=== PATIENT | female | born 1960 | race Hispanic/Latino ===

== ENCOUNTER 2024-07-28 20:48 | Inpatient (IN) | payer SELFPAY ==
[~2024-07-28] VITALS: Ht 154.9 cm; Wt 116.4 kg
[~2024-07-28 20:48] MED LIST: ALDACTONE25 MG PO; AMLODIPINE BESYL5 MG PO; ATORVASTATIN CA40 MG PO; AVAPRO300 MG PO; CARVEDILOL6.25 MG PO; D3400 UNIT PO; ISOSORB MONO30 MG PO; LASIX 40 MG TAB40 MG PO; OZEMPIC 8 MG/3M1 INJ SC; PROTONIX40 M2 PO; VENTOLIN HFA108 MCG IH; ZOLOFT50 MG PO
--- NOTE | 2024-07-28 21:00 | NUR ---
PATIENT TO ROOM, EKG OBTAINED, IV ESTABLISHED, LABS DRAWN AND PATIENT PLACED ON 2L VIA NC. PATIENT SATURATING AT 65% PLACED ON 3 L NC, PATIENT SATURATING 91%/ BAILIFF CALLED TO BEDSIDE.
[2024-07-28] MEDS ORDERED: ASPIRIN 81 MG/TAB PO ONE (21:20)
[2024-07-28] MEDS ORDERED: ACETAMINOPHEN 500 MG TAB PO ONE (21:25)
[2024-07-28 21:27] LABS: BASO% 0.4 % (0-3); EOS% 3.2 % (0-8); HEMATOCRIT 38.5 % (37.0-47.0); HEMOGLOBIN 11.4 g/dl (12.0-16.0); IMMATURE GRANULOCYTES 0.5 % (0.0-5.0); LYMPH% 15.5 % (15-41); MEAN CELL VOLUME 88.3 fL CALC (80.0-100.0); MEAN CORPUSCULAR HGB 26.1 pG CALC (26.0-32.0); MEAN CORPUSCULAR HGB CONC 29.6 g/dL CAL (32.0-36.0); MONO% 7.2 % (2-13); NEUT# 8.16 thou/uL (2.00-7.15); NEUT% 73.2 % (42-76); RED BLOOD COUNT 4.36 mill/uL (4.20-5.60); RED CELL DISTRI WIDTH 14.9 % (11.5-15.5)
[2024-07-28 21:40] LABS: ALBUMIN 4.2 g/dL (3.2-5.0); BILIRUBIN, TOTAL 0.6 mg/dL (0.02-1.3); CREATININE 1.1 mg/dL (0.5-1.0); POTASSIUM 3.9 mmol/l (3.5-5.1); TOTAL PROTEIN 7.7 g/dL (6.3-8.2)
[2024-07-28 21:45] LABS: D-DIMER 0.86 mg/L (0.19-0.60)
[2024-07-28 21:48] LABS: ACT PARTIAL THROMBO TIME 25.8 SECONDS (20.0-32.5); INTERNATIONAL NORMALIZED RATIO 0.9 RATIO (0.7-1.3)
[2024-07-28 21:49] LABS: PROTHROMBIN TIME 10.1 SECONDS (9.0-12.5)
[2024-07-28] MEDS ORDERED: Iopamidol 370 (Isovue) 76% 100 ML SDV IV ONE (21:50)
[2024-07-28 22:04] VITALS: BP 204/98
--- NOTE | 2024-07-28 22:34 | NUR ---
ASSISTED PT TO ROOM FROM BATHROOM AT THIS TIME VIA W/C. PT URINE SAMPLE COLLECTED.
[2024-07-28 22:39] LABS: URINE BILIRUBIN - DIPSTICK Negative (NEGATIVE); URINE BLOOD DIPSTICK Trace-intact (NEGATIVE); URINE GLUCOSE - DIPSTICK Negative (NEGATIVE); URINE KETONE Negative (NEGATIVE); URINE LEUK ESTERASE Negative (NEGATIVE); URINE NITRITE - DIPSTICK Negative (Negative); URINE PROTEIN - DIPSTICK 100 mg/dL (NEG-TRACE)
[2024-07-28 22:40] LABS: URINE COLOR Yellow
[2024-07-28 22:45] LABS: URINE SQUAMOUS EPITHELIAL CELL MANY EPI/hpf (0-FEW); URINE WBC 0-2 WBC/hpf (0-5)
[2024-07-28 22:47] VITALS: BP 194/90
--- NOTE | 2024-07-28 23:08 | NUR ---
MD AT BEDSIDE REVIEWING RESULTS WITH PT
[2024-07-28] MEDS ORDERED: cefTRIAXone SODIUM 2 GM in SODIUM CHLORIDE 0.9% 100 ML IV ONE (23:10)
[2024-07-28] MEDS ORDERED: AZITHROMYCIN 500 MG in SODIUM CHLORIDE 0.9% 250 ML IV ONE (23:10)
[2024-07-28] MEDS ORDERED: FUROSEMIDE 40 MG/4 ML SDV IV ONE (23:10)
[2024-07-28] MEDS ORDERED: ONDANSETRON HCl 4 MG/2 ML SDV IV PRN (23:15)
[2024-07-28] MEDS ORDERED: IBUPROFEN 800 MG/TAB PO PRN (23:15)
[2024-07-28] MEDS ORDERED: Polyethylene Glycol 3350 17 GM/PKT PO PRN (23:15)
[2024-07-28] MEDS ORDERED: ALUM & MAG HYDROX-SIMETHICONE 30 ML PO PRN (23:15)
[2024-07-28] MEDS ORDERED: ENOXAPARIN SODIUM 40 MG/0.4 ML SYR SC SCH (23:15)
[2024-07-28] MEDS ORDERED: FAMOTIDINE 10MG/ML 2ML SDV IV PRN (23:15)
[2024-07-28] MEDS ORDERED: ONDANSETRON 4 MG/TAB ODT PO PRN (23:15)
[2024-07-28] MEDS ORDERED: INSULIN LISPRO 100 UNITS/ML ML SC SCH (23:20)
[2024-07-28] MEDS ORDERED: DEXTROSE 250 ML IV PRN (23:20)
[2024-07-28] MEDS ORDERED: GLUCOTROL EXTE2.5 M1 PO (23:30)
[2024-07-28] MEDS ORDERED: LABETALOL HCL 20 MG/ 4 ML CARTRG IV ONE (23:30)
[2024-07-28] MEDS ORDERED: cloNIDine HCL 0.1 MG/TAB PO ONE (23:30)
[2024-07-28 23:36] VITALS: BP 224/105
[2024-07-28 23:44] VITALS: BP 221/107
[2024-07-28 23:45] VITALS: BP 193/87
--- NOTE | 2024-07-28 23:54 | NUR ---
REPORT GIVEN TO IESHA RUIZ
[2024-07-29] VITALS (10 sets, daily range): BP systolic 109–184; BP diastolic 53–83
--- NOTE | 2024-07-29 00:20 | NUR ---
PATIENT BEING TRASNPORTED TO [facility].
--- NOTE | 2024-07-29 02:08 | NUR ---
PT RECEIVED FROM ER VIA WHEELCHAIR. REPORT RECEIVED FROM ER NURSE. ASSESSMENT COMPLETED AT THIS TIME. PT ALERT AND ORIENTED X3 DENIES ANY PAIN. RESPS ARE EVEN AND UNLABORED. O2 IN PLACE VIA NC AT 2L/MIN. LUNG SOUNDS LEAR IN UPPER LOBES-DIMINISHED ON LOBER LOBES. BOWEL SOUNDS ARE ACTIVE IN ALL QUADRANTS. STATED ALS BM WAS 06/27/24. ABD SOFT AND NONTENDER. EDEMA BILATERALLY ON FEET +1. 20 L A/C NOTED-FLUSHES WELL. TELE ON PLACE. BSC ON THE SIDE. ORIENTED TO ROOM AND SURROUNDINGS. INSTRUCTED TO CALL FOR ASSISTANCE. CALL LIGHT IN REACH AND SAFETY PRECAUTIONS IN PLACE.
[2024-07-29 04:41] LABS: BASO% 0.5 % (0-3); EOS% 3.1 % (0-8); HEMATOCRIT 33.8 % (37.0-47.0); HEMOGLOBIN 10.2 g/dl (12.0-16.0); IMMATURE GRANULOCYTES 0.3 % (0.0-5.0); MEAN CELL VOLUME 87.8 fL CALC (80.0-100.0); MEAN CORPUSCULAR HGB 26.5 pG CALC (26.0-32.0); MEAN CORPUSCULAR HGB CONC 30.2 g/dL CAL (32.0-36.0); MONO% 8.8 % (2-13); NEUT# 7.37 thou/uL (2.00-7.15); NEUT% 70.3 % (42-76); RED BLOOD COUNT 3.85 mill/uL (4.20-5.60); RED CELL DISTRI WIDTH 14.9 % (11.5-15.5)
[2024-07-29 04:45] LABS: CHOLESTEROL HDL RATIO 3.1 (<4.4 (CALC)); POTASSIUM 3.9 mmol/l (3.5-5.1)
--- NOTE | 2024-07-29 07:30 | NUR ---
SHIFT CHANGE REPORT, PT AITTING UP AT BEDSIDE, C/O SOB AND HEADACHE WHEN AMBULATING TO BR, O2 @ 2L VIA NC IN PLACE, TELE MONITOR IN PLACE, CALL VALENTIN IN REACH AND BED LOCKED IN LOWEST POSITION.
[2024-07-29] MEDS ORDERED: DEXTROSE 250 ML IV PRN (08:15)
[2024-07-29] MEDS ORDERED: ISOSORBIDE MONONITRATE 30 MG TAB PO SCH (09:00)
[2024-07-29] MEDS ORDERED: CARVEDILOL 6.25 MG/TAB PO SCH (09:00)
[2024-07-29] MEDS ORDERED: SERTRALINE HCL 50 MG/TAB PO SCH (09:00)
[2024-07-29] MEDS ORDERED: ASPIRIN 81 MG/TAB PO SCH ×2 (09:00)
--- NOTE | 2024-07-29 09:40 | NUR ---
COMMUNICATION VIA LANGUAGE LINE (REP IS YASMANY), PT REPORTS HEADACHE AND SOB DURING AMBULATION, REQUESTING PROTONIX STATING SHE TAKES 40 MG DAILY AT HOME AND ALSO ASKING FOR LAXATIVE/STOOL SOFTNER STATING SHE HAS NOT HAD A GOOOD BM IN DAYS EVEN THOUGH SHE WENT YESTERDAY, VACCINE SPECIALIST NOTIFIED AND SAID SHE WILL ADDRESS CONCERNS.
[2024-07-29] MEDS ORDERED: methylPREDNISolone Sod Succ 40 MG/ML SDV IV SCH (10:00)
[2024-07-29] MEDS ORDERED: INSULIN LISPRO 100 UNITS/ML ML SC SCH (11:00)
[2024-07-29] MEDS ORDERED: FUROSEMIDE 40 MG/4 ML SDV IV SCH (11:00)
[2024-07-29] MEDS ORDERED: ALBUTEROL SULFATE 2.5 MG VIAL NEB PRN (11:15)
[2024-07-29] MEDS ORDERED: ACETAMINOPHEN 325 MG/TAB PO PRN (11:20)
[2024-07-29] MEDS ORDERED: MAGNESIUM HYDROXIDE 30 ML UDC PO PRN (11:20)
[2024-07-29] MEDS ORDERED: hydrALAZINE HCL 20 MG/ML VIAL(1 ML) IV PRN (11:25)
[2024-07-29] MEDS ORDERED: SENNOSIDES-Docusate Sodium 1 COMBO TAB PO SCH (11:30)
[2024-07-29] MEDS ORDERED: PANTOPRAZOLE SODIUM Sesquihydr 40 MG/TAB PO SCH (11:45)
--- NOTE | 2024-07-29 12:00 | NUR ---
CONDITION STABLE AT THIS TIME, CONCERNS ADDRESSED, CALL VALENTIN IN REACH.
--- NOTE | 2024-07-29 14:00 | NUR ---
PT REPORTS SHE EXPERIENCES SOB AND HEADACHE WHENEVER SHE AMBULATES TO BR OR TRIES TO TAKE A SHOWER, MEDICAL STAFF INFORMED, PT ADVISED TO USE CALL VALENTIN TO CALL FOR ASSISTANCE NEEDED.
--- NOTE | 2024-07-29 16:52 | NUR ---
SITTING UP AT BEDSIDE AT THIS TIME HAVING MEAL.
--- NOTE | 2024-07-29 19:30 | NUR ---
PATIENT RESTING ON BED WITH HER SITTING ON THE RECLINER. ALERT AND ORIENTED X3. DENIES ANY PAIN AT THIS MOMENT. RESPS ARE EVEN AND UNLABORED. PT STATES WHEN SHE STANDS UP OF THE BED SHE FEELS SOB. NOW PATIENT DENIES ANY DIFFICULTY WITH BREATHING. 02 VIA NC AT 2L/MIN. LUNGS ARE CLEAR/DIMIBISHED ALL TROUGHOUT QUADRANTS. BOWEL SOUNDS ARE ACTIVE AND ABDOMEN IS SOFT AND DISTENDED. STRONG PALPABLE PULSES NOTED. SKIN LOOKS INTACT AND CLEAN. TELE ON PLACE RUNNING SR-71. 20 G IV ON HER LAC NOTED- SALINE LOCK, FLUSHED WITH 5 CC APPEARS INTACT-NO SIGNS OF ANY ABNORMALITIES. BEDSIDE COMMODE ON THE SIDE. ENCOURAGE TO CALL FOR ASSISTANCE AND DEMOSTRATES UNDERSTANDING. CALL LIGHT IN REACH AND SAFETY PRECAUTIONS IN PLACE.
[2024-07-29] MEDS ORDERED: ATORVASTATIN CALCIUM 40 MG/TAB PO SCH (21:00)
[2024-07-29] MEDS ORDERED: ENOXAPARIN SODIUM 40 MG/0.4 ML SYR SC SCH (21:00)
[2024-07-29] MEDS ORDERED: cefTRIAXone SODIUM 2 GM in SODIUM CHLORIDE 0.9% 100 ML IV SCH (23:00)
[2024-07-30] VITALS (11 sets, daily range): BP systolic 148–178; BP diastolic 63–82
[2024-07-30] MEDS ORDERED: AZITHROMYCIN 500 MG in SODIUM CHLORIDE 0.9% 250 ML IV SCH
--- NOTE | 2024-07-30 00:30 | NUR ---
PT RESTING IN BED WITH EYES OPEN. IV ANTIBIOTIC (ZITROMAX) PATENT AND INFUSING VIA 24 G LEFT HAND AT THIS TIME. TELE ON PLACE RUNNING [employer]. DENIES ANY NEEDS. RESPS ARE EVEN AND UNLABORED. CALL LIGHT WITHIN REACH AND SAFETY PRECAUTIONS IN PLACE.
--- NOTE | 2024-07-30 00:48 | NUR ---
IV SITE LEAKING, 2IV CATH REMOVED, NEW IV REINSERTED ON LEFT HAND G 24,PATNET FLUSHES WELL, REMAINS ON O2 @ 2LPM VIA NC, STILL WITH EXERTIONAL DYSPNEA NOTED, PATIENT CURRENTLY AWAKE EATING SNACK CALL LIGHT IN REACHED.
--- NOTE | 2024-07-30 04:17 | NUR ---
PT RESTING ON BED ON HER RIGHT SIDE AT THIS TIME. O2 IN PLACE VIA NC AT 2L/MIN. TELE IN PLACE READING SR-70 AT THIS TIME. RESPS ARE EVEN AND UNLABORED. CALL LIGHT IN REACH AND SAFETY PRECAUTIONS IN PLACE.
[2024-07-30 05:43] LABS: HEMOGLOBIN 11.3 g/dl (12.0-16.0); MEAN CELL VOLUME 86.4 fL CALC (80.0-100.0); MEAN CORPUSCULAR HGB 26.4 pG CALC (26.0-32.0); MEAN CORPUSCULAR HGB CONC 30.5 g/dL CAL (32.0-36.0); RED BLOOD COUNT 4.28 mill/uL (4.20-5.60); RED CELL DISTRI WIDTH 14.8 % (11.5-15.5)
[2024-07-30 05:52] LABS: ALBUMIN 3.8 g/dL (3.2-5.0); BILIRUBIN, TOTAL 0.3 mg/dL (0.02-1.3); CREATININE 0.7 mg/dL (0.5-1.0); POTASSIUM 4.3 mmol/l (3.5-5.1); TOTAL PROTEIN 6.9 g/dL (6.3-8.2)
--- NOTE | 2024-07-30 07:18 | NUR ---
SHIFT CHANGE REPORT, PT RESTING IN BED BUT AWAKE ALERT AND ORIENTED, REQUESTING HER PROTONIX AT THIS TIME, MOM ALSO GIVEN SHE HAS BEEN HAVING CONCERNS ABOUT HER BOWELS SINCE YESTERDAY, O2 @ 2L VIA NC IN PLACE, TELE MONITOR IN PLACE, CALL VALENTIN IN REACH AND BED LOCKED IN LOWEST POSITION.
[2024-07-30] MEDS ORDERED: LISINOPRIL 10 MG/TAB PO SCH (09:00)
[2024-07-30] MEDS ORDERED: FUROSEMIDE 40 MG/4 ML SDV IV SCH ×2 (09:00)
[2024-07-30] MEDS ORDERED: PNEUMOCOCCAL VACCINE IM SCH (09:00)
[2024-07-30] MEDS ORDERED: PNEUMOCOCCAL 20-VALENT CONJUGA 0.5 ML/DOSE INJ IM SCH (09:00)
--- NOTE | 2024-07-30 09:17 | NUR ---
INFORMED OF ORDERED IMAGING PROCEDURE, TRANSPORTED OFF UNIT AT THIS TIME VIA W/C TO PROCEDURE.
--- NOTE | 2024-07-30 09:27 | NUR ---
RETURNED TO UNIT AT THIS TIME AND SETTLED IN BED.
--- NOTE | 2024-07-30 14:31 | NUR ---
BACK FROM PROCEDURE AND SETTLED IN ROOM, STABLE CONDITION
--- NOTE | 2024-07-30 20:03 | NUR ---
PATIENT RESTING QUIETLY IN BED. AWAKE, ALERT AND ORIENTED X3. PATIENT TUNISIAN SPEAKING, STAFF USED FOR TRANSLATION. ASSESSMENT COMPLETE. DENIES PAIN AT THIS TIME. CALL LIGHT WITHIN REACH.
[2024-07-31] VITALS (13 sets, daily range): BP systolic 126–175; BP diastolic 54–75
[2024-07-31 05:20] LABS: BASO% 0.3 % (0-3); EOS% 1.7 % (0-8); HEMATOCRIT 38.5 % (37.0-47.0); HEMOGLOBIN 11.5 g/dl (12.0-16.0); IMMATURE GRANULOCYTES 0.2 % (0.0-5.0); LYMPH% 19.7 % (15-41); MEAN CELL VOLUME 88.3 fL CALC (80.0-100.0); MEAN CORPUSCULAR HGB 26.4 pG CALC (26.0-32.0); MEAN CORPUSCULAR HGB CONC 29.9 g/dL CAL (32.0-36.0); MONO% 8.7 % (2-13); NEUT# 8.41 thou/uL (2.00-7.15); NEUT% 69.4 % (42-76); RED BLOOD COUNT 4.36 mill/uL (4.20-5.60); RED CELL DISTRI WIDTH 15.2 % (11.5-15.5)
[2024-07-31 05:47] LABS: ALBUMIN 3.6 g/dL (3.2-5.0); BILIRUBIN, TOTAL 0.2 mg/dL (0.02-1.3); CREATININE 1.2 mg/dL (0.5-1.0); MAGNESIUM 2.4 mg/dL (1.6-2.3); POTASSIUM 3.9 mmol/l (3.5-5.1); TOTAL PROTEIN 6.6 g/dL (6.3-8.2)
--- NOTE | 2024-07-31 07:25 | NUR ---
PT LAYING IN BED RESTING WITH EYES CLOSED, AROUSES EASILY TO VERBAL STIMULI, PUPILS PERRL, RESP. EVEN AND UNLABORED, LUNG SOUNDS CLEAR IN ALL BLANK, NORMAL S1 S2 LUNG SOUNDS, TELE MONITOR IN PLACE, ABD DISTENDED AND SOFT WITH ACTIVE BOWEL SOUNDS, STRONG RADIAL PULSES AND WEAK PEDAL PULSES, 24G LH IV SL, SAFETY MEASURES REINFORCED, CALL VALENTIN WITHIN REACH
[2024-07-31] MEDS ORDERED: IPRATROPIUM-Albuterol 0.5MG-2.5MG/3 ML NEB SCH (11:00)
[2024-07-31] MEDS ORDERED: IPRATROPIUM-Albuterol 0.5MG-2.5MG/3 ML NEB PRN (11:44)
--- NOTE | 2024-07-31 16:00 | NUR ---
PT SITTING ON THE SIDE OF THE BED, PT DENIES ANY NEEDS AT THIS TIME, CALL VALENTIN WITHIN REACH
[2024-07-31] MEDS ORDERED: GUAIFENESIN 600 MG/TAB PO SCH (21:00)
[2024-08-01 03:26] VITALS: BP 119/75
[2024-08-01 05:27] LABS: BASO% 0.5 % (0-3); EOS% 3.1 % (0-8); HEMATOCRIT 38.6 % (37.0-47.0); HEMOGLOBIN 11.6 g/dl (12.0-16.0); IMMATURE GRANULOCYTES 0.2 % (0.0-5.0); LYMPH% 23.8 % (15-41); MEAN CELL VOLUME 88.7 fL CALC (80.0-100.0); MEAN CORPUSCULAR HGB 26.7 pG CALC (26.0-32.0); MEAN CORPUSCULAR HGB CONC 30.1 g/dL CAL (32.0-36.0); MONO% 11.1 % (2-13); NEUT# 5.41 thou/uL (2.00-7.15); NEUT% 61.3 % (42-76); RED BLOOD COUNT 4.35 mill/uL (4.20-5.60); RED CELL DISTRI WIDTH 15.3 % (11.5-15.5)
[2024-08-01 05:38] LABS: ALBUMIN 3.3 g/dL (3.2-5.0); MAGNESIUM 2.4 mg/dL (1.6-2.3); POTASSIUM 3.8 mmol/l (3.5-5.1); TOTAL PROTEIN 6.2 g/dL (6.3-8.2)
[2024-08-01 05:39] LABS: BILIRUBIN, TOTAL 0.4 mg/dL (0.02-1.3)
--- NOTE | 2024-08-01 07:15 | NUR ---
PT LAYING IN BED RESTING WITH EYES CLOSES, AROUSES EASILY TO VERBAL STIMULI, CUSTOM FEED MILL OPERATOR HELPER&O X 3, NORMAL S1 S2 HEART SOUNDS, TELE MONITOR IN PLACE, RESP. EVEN AND UNLABORED, LUNG SOUNDS ARE DIMINISHED, ABD DISTENDED AND SOFT WITH ACTIVE BOWEL SOUNDS, STRONG RADIAL PULSES, WEAK PEDAL PULSES, 24G L HAND IV SL, SAFETY MEASURES REINFORCED, CALL VALENTIN WITHIN REACH
[2024-08-01] MEDS ORDERED: MUCINEX600 MG PO (08:55)
[2024-08-01] MEDS ORDERED: FUROSEMIDE 40 MG/4 ML SDV IV SCH (09:00)
[2024-08-01] MEDS ORDERED: ZYRTEC5 M1 PO (09:06)
[2024-08-01 10:56] VITALS: BP 143/71
--- NOTE | 2024-08-01 11:53 | NUR ---
PT SITTING UP IN THE RECLINER, DISCHARGE INSTRUCTIONS REVIEWED WITH PT AND , ROMANIAN SPEAKING WIRE STITCHER MACHINE AT BEDSIDE, IV CATH REMOVED, CATH TIP INTACT, PT EATING LUNCH BEFORE DISCHARGE
--- NOTE | 2024-08-01 12:08 | NUR ---
Discharge instructions given. Patient verbalizes understanding of same. Discharged in stable condition via Wheelchair to Home with spouse. All belongings sent with pt.
== END 2024-08-01 12:08 | disposition home or self-care (01) | DRG 291 ==
LOC: ED 20:48 → MS2 23:18
PROVIDERS: Family Medicine; Nurse Practitioner Family; Student in an Organized Health Care Education/Training Program; ADMIT Internal Medicine; ATTEND Internal Medicine
DX: I11.0 Hypertensive heart disease with heart failure (principal); I50.33 Acute on chronic diastolic (congestive) heart failure; J96.01 Acute respiratory failure with hypoxia; E11.9 Type 2 diabetes mellitus without complications; I08.3 Combined rheumatic disorders of mitral, aortic and tricuspid valves; G47.33 Obstructive sleep apnea (adult) (pediatric); E66.01 Morbid (severe) obesity due to excess calories; K21.9 Gastro-esophageal reflux disease without esophagitis; K59.00 Constipation, unspecified; Z85.3 Personal history of malignant neoplasm of breast; Z92.3 Personal history of irradiation; Z79.84 Long term (current) use of oral hypoglycemic drugs
CPT/HCPCS: J0456; J1650; J1815; Q9967